=== PATIENT | male | born 1965 | race Caucasian/White ===

== ENCOUNTER 2019-03-27 07:45 | Outpatient (CLI) | payer OTHER ==
--- NOTE | 2019-03-27 09:05 | RAD ---
CERVICAL SPINE 5 VIEWS: HISTORY: Neck pain, numbness to hands, status post chemotherapy for colon cancer. FINDINGS: C7, C7-T1, and T1 are partially obscured on the lateral views, the odontoid and C1 are partially obsc ured on the AP open mouth view. No prevertebral soft tissue swelling. No significant malalignment. Generalized disk-osteophytosis and facet arthrosis. No abnormal translation between flexion and ext ension. IMPRESSION: Cervical spondylosis. No abnormal translation. POS: [facility]
== END 2019-03-27 07:46 | disposition home or self-care (01) ==
LOC: TBSIIMAG 07:45
PROVIDERS: ATTEND Neurological Surgery
DX: M54.2 Cervicalgia (principal); M47.812 Spondylosis without myelopathy or radiculopathy, cervical region
CPT/HCPCS: 72050

== ENCOUNTER 2022-10-19 14:29 | Outpatient (CLI) | payer BC | END 2022-10-19 14:30 | disposition home or self-care (01) | LOC: BICMRI 14:29 | PROVIDERS: ATTEND Nurse Practitioner Family | DX: M79.671 Pain in right foot (principal) ==

== ENCOUNTER 2023-04-19 14:20 | Outpatient (CLI) | payer BC | END 2023-04-19 14:21 | disposition home or self-care (01) | LOC: ULT 14:20 | PROVIDERS: ATTEND Psychiatry & Neurology Neurology | DX: I73.9 Peripheral vascular disease, unspecified (principal) | CPT/HCPCS: 93923 ==

== ENCOUNTER 2023-05-25 16:00 | Outpatient (CLI) | payer BC | END 2023-05-25 16:01 | disposition home or self-care (01) | LOC: SLEEPLAB 16:00 | PROVIDERS: ATTEND Nurse Practitioner Family | DX: G47.33 Obstructive sleep apnea (adult) (pediatric) (principal); R53.83 Other fatigue; E66.9 Obesity, unspecified; R06.83 Snoring; I10 Essential (primary) hypertension; Z68.32 Body mass index [BMI] 32.0-32.9, adult | CPT/HCPCS: 95800 ==

== ENCOUNTER 2024-08-07 07:53 | Emergency (ER) | payer BC ==
[2024-08-07] MEDS ORDERED: dilTIAZem 25 MG/5 ML VIAL ONE ×2 (08:26→09:28)
[2024-08-07 08:34] LABS: #Basophils 0.06 10x3/uL (0.0-0.2); #Eosinophils 0.19 10x3/uL (0.0-0.7); #Monocytes 1.23 10x3/uL (0.11-0.59); #Neutrophils 7.33 10x3/uL (1.40-6.50); %Basophils 0.6 % (0.0-1.0); %Eosinophils 1.8 % (0.0-10.0); %Lymphocytes 18.0 % (21.0-51.0); %Monocytes 11.4 % (0.0-10.0); %Neutrophils 67.7 % (42.0-75.0); Hematocrit 46.0 % (42.0-52.0); Hemoglobin 15.6 g/dL (14.0-18.0); Mean Corpuscular Hemoglobin 30.3 pg (27.0-31.0); Mean Corpuscular Volume 89.3 fL (78.0-98.0); Platelet Count 190 10x3/uL (130-400); Red Blood Cell (RBC) Count 5.15 mill/uL (4.70-6.10); White Blood Cell (WBC) Count 10.81 10x3/uL (4.8-10.8)
[2024-08-07 08:49] LABS: Troponin I 0.010 ng/mL (< 0.028)
[2024-08-07 08:51] LABS: INR-International Normal Ratio 1.1; PTT 35.7 sec (22.9-36.1); Prothrombin Time 14.7 sec (12.0-14.7)
[2024-08-07 08:57] LABS: ALT (SGPT) 11 U/L (Less than 45); AST (SGOT) 15 U/L (11-34); Albumin 3.7 g/dL (3.1-4.5); Alkaline Phosphatase 52 U/L (40-110); Anion Gap 11 mmol/L (10-20); BUN (Urea Nitrogen) 15 mg/dL (8.4-25.7); Bilirubin, Total 0.9 mg/dL (0.3-1.2); Calc. Creatinine Clearance 0 mL/min (70-130); Calcium 8.4 mg/dL (7.8-10.44); Carbon Dioxide 24 mmol/L (22-29); Chloride 109 mmol/L (98-107); Globulin 2.6 g/dL (2.4-3.5); Glucose 84 mg/dL (70-105); Magnesium 2.0 mg/dL (1.6-2.6); Potassium 3.7 mmol/L (3.5-5.1); Sodium 140 mmol/L (136-145)
[2024-08-07] MEDS ORDERED: Aspirin 81 mg Enteric Coated Tablet ONE (09:29)
[2024-08-07] MEDS ORDERED: Enoxaparin 30 MG (0.3 mL) SYRINGE ONE (09:40)
[2024-08-07] MEDS ORDERED: Enoxaparin 80 MG (0.8 mL) SYRINGE ONE (09:40)
[2024-08-07] MEDS ORDERED: Iopamidol-370 76% 500 ML MDV (1 ML CHARGE) ONE (12:39)
== END 2024-08-07 11:57 | disposition short-term general hospital (02) ==
LOC: ERS 07:53
DX: I48.91 Unspecified atrial fibrillation (principal); R07.9 Chest pain, unspecified; I72.8 Aneurysm of other specified arteries; Z55.6 Problems related to health literacy; I10 Essential (primary) hypertension; Z79.899 Other long term (current) drug therapy
CPT/HCPCS: 71045; 71275; 74174; 80053; 83735; 83880; 84443; 84484; 85025; 85610; 85730; 93005; 94760; 96372; 96374; 96376; J1650; Q9967